=== PATIENT | male | born 2000 | race Caucasian/White ===

== ENCOUNTER 2022-11-07 22:51 | Outpatient (CLI) | payer OTHER | END 2022-11-07 23:59 | disposition critical access hospital (66) | LOC: EMS 22:51 | DX: S61.412A Laceration without foreign body of left hand, initial encounter (principal); W26.0XXA Contact with knife, initial encounter; Y93.G1 Activity, food preparation and clean up; Y92.009 Unspecified place in unspecified non-institutional (private) residence as the place of occurrence of the external cause | CPT/HCPCS: A0425; A0429 ==

== ENCOUNTER 2022-11-07 23:07 | Emergency (ER) | payer OTHER ==
[2022-11-07] MEDS ORDERED: LIDOCAINE 1%-EPI 1:100000 10 ML MDV SUBQ STA (23:13)
--- NOTE | 2022-11-07 23:13 | ED Physician Documentation ---
History of Present Illness - Stated complaint Stated Complaint: LT HAND LAC - Additonal information Additional information: Patient 22-year-old male, punctured left hand while cutting an avocado. [id number].. [id number]. Active duty. Tetanus up-to-date. Review of Systems Constitutional: denies: Fever Eyes: denies: Loss of vision Ears: denies: Loss of hearing Nose: denies: Rhinorrhea / runny nose Throat: denies: Dental pain / toothache Cardiac: denies: Chest pain / pressure Respiratory: denies: Dyspnea : denies: Dysuria Skin: denies: Rash Musculoskeletal: denies: Neck pain PD PAST MEDICAL HISTORY - Present Medications Home Medications: Ambulatory Orders Medication Instructions Recorded Confirmed No Known Home Medications 11/07/22 11/07/22 - Allergies Allergies/Adverse Reactions: Allergies Allergy/AdvReac Type Severity Reaction Status Date / Time No Known Drug Allergies Allergy Verified 11/07/22 23:13 PD ED PE NORMAL - General General: Alert and oriented X 3 - HEENT HEENT: Atraumatic - Respiratory Respiratory: No respiratory distress - Extremities Extremities: Other (2.5 cm laceration on the palm of the left hand, this is overlying the fourth lumbrical. Patient has full and complete range of flexion, extension at the left hand including superficialis and profundus flexor tendons. Wound explored through full range of motion without retained foreign body identif) Results - Vitals Vitals: Vital Signs - 24 hr 11/07/22 23:11 Temperature 37.1 C Heart Rate 66 Respiratory 16 Rate Blood Pressure 115/71 O2 Saturation 97 Oxygen O2 Source Room air Procedures - Laceration (location) Hand left Length in cm: 2.5 Wound type: Linear Neurovascular status: Sensory intact, Motor intact Tendon involvement: Tendon intact Anesthesia: Lidocaine 1% Wound preparation: Irrigated copiously NS Skin layer closure: Nylon (4-0), Sutures - enter # (3) Other: Patient tolerated well PD Medical Decision Making - ED course Complexity details: re-evaluated patient, considered differential, d/w patient ED course: Patient 22-year-old male presenting to the emergency department with left hand injury. Puncture left hand with knife while cutting avocado earlier today. Bleeding controlled on arrival. Patient with full range of extension and flexion, no loss of sensation in both extensor tendon as well as flexor superficialis and profundus are intact on exam. Wound extensively cleaned and irrigated. No identified foreign body. Wound repaired as outlined in procedure note above. Will discharge with wound care instructions and follow-up instructions given. Departure - Departure Disposition: 01 Home, Self Care Clinical Impression: Laceration of hand Instructions: ED Laceration Ext Sutr Stap Tape Comments: Thank you for allowing us to care for you today would be general. Today in the emergency department you received 3 stitches to the laceration to your left hand. These will need to be removed in 7 to 10 days. I recommend twice daily application of a topical antibiotic ointment such as Neosporin or bacitracin. Please change your dressings daily. Rinsing the area gently with soapy water is fine but please do not scrub the site of your stitches or submerge the area of injury until it is fully healed. Please monitor the area carefully for any developing infection, this often demonstrates itself with symptoms such as increased pain, swelling, redness, heat. If any of these develop please follow-up with a primary care doctor or return to the emergency department. Forms: PCP List
[2022-11-07] MEDS ORDERED: lidocaine 1% 20 ML MDV ONE (23:34)
[2022-11-07] MEDS ORDERED: lidocaine 1% 20 ML MDV SUBQ ONE (23:37)
[2022-11-07] MEDS ORDERED: BACITRACIN ZINC OINT 1 PACKET TOP STA (23:58)
[2022-11-08 00:20] VITALS: BP 110/67; O2SAT 99
== END 2022-11-08 00:15 | disposition home or self-care (01) ==
LOC: ED 23:07
DX: S61.412A Laceration without foreign body of left hand, initial encounter (principal); W26.0XXA Contact with knife, initial encounter; Y93.G1 Activity, food preparation and clean up
CPT/HCPCS: 12001; 99283; A9270